=== PATIENT | female | born 1950 | race Caucasian/White ===

== ENCOUNTER → 2017-03-21 | Outpatient (CLI) | payer OTHER, BC ==
[~2017-03-21] MED LIST: ALBU1NEB10 INH; ALBUAER19 INH; ASTN NAE; CARI350T PO; DICL1GEL12 TOP; ESOM40GR PO; FURO20TA PO; IBUP-103 PO; LORA10TA5 PO; MCRK20 PO; MONT1TAB3 PO; MULTTAB58 PO; Motrin PO; SALI0.6510 NAE; SUCR5SUS PO; SYMIN160 INH; VENASTAT PO; [UNRECOGNIZED DRUG - CODE] EX
[2017-03-21 14:44] LABS: URINE APPEARANCE CLEAR (CLEAR); URINE BILIRUBIN NEG (NEG); URINE COLOR YELLOW; URINE NITRITE NEG (NEG); URINE SPECIFIC GRAVITY 1.006 (1.000-1.030); UROBILINOGEN NEG (NEG)
[2017-03-21 14:48] LABS: MANUAL MICROSCOPIC REQUIRED? NO; REVIEW REQ? NO
== END | disposition home or self-care (01) ==
LOC: C.LABSPEC 14:01
PROVIDERS: ATTEND Obstetrics & Gynecology
DX: N76.0 Acute vaginitis (principal); R30.0 Dysuria

== ENCOUNTER → 2017-03-21 | Outpatient (CLI) | payer BC, OTHER | END | disposition home or self-care (01) | LOC: C.PAPS 13:56 | PROVIDERS: ATTEND Obstetrics & Gynecology | DX: Z12.4 Encounter for screening for malignant neoplasm of cervix (principal) ==

== ENCOUNTER → 2017-09-19 | Outpatient (CLI) | payer OTHER, BC ==
--- NOTE | 2017-09-19 13:49 | DIAGNOSTIC IMAGING REPORT ---
CHEST 2 VIEWS ROUTINE CLINICAL HISTORY: R91.1 Pulmonary nodule lung nodule COMPARISON STUDY: 07/19/2014. CT chest 09/17/2016 FINDINGS: Chronic bibasilar platelike atelectasis. No focal infiltrate. No significant nodular pathology by plain film criteria. IMPRESSION: Bibasilar platelike atelectasis. No acute process. The above report was generated using voice recognition software. It may contain grammatical, syntax or spelling errors. Electronically signed by: Pelon Watt M.D. 09/19/2017 1:48 PM Dictated Date/Time: 09/19/2017 1:46 PM
== END | disposition home or self-care (01) ==
LOC: C.RAD 12:31
PROVIDERS: ATTEND Physician Assistant
DX: J98.11 Atelectasis (principal); R91.1 Solitary pulmonary nodule

== ENCOUNTER → 2017-10-08 | Outpatient (CLI) | payer OTHER, BC ==
[~2017-10-08] MED LIST changes: +OPTIRAY 320 IV PRN
--- NOTE | 2017-10-08 10:16 | DIAGNOSTIC IMAGING REPORT ---
CHEST CT WITH CONTRAST CT DOSE: 642.26 mGycm HISTORY: Acute cough with pulmonary nodule R05 [id number] Pulmonary nodule TECHNIQUE: Multiaxial CT images of the chest were performed following the intravenous administration of contrast. A dose lowering technique was utilized adhering to the principles of ALARA. COMPARISON: Chest CT 09/17/2016, 09/26/2015 and 08/23/2014. FINDINGS: Thyroid is homogeneous. No pathologic adenopathy about the chest identified. Heart is mildly enlarged without pericardial effusion. Bovine aortic arch is noted. Image great vessels are patent. No aortic dissection or aneurysm identified. The opacified pulmonary arterial tree is unremarkable. There is no pneumothorax, pleural effusion or focal airspace consolidation. Linear subsegmental bibasilar opacities are again seen suggesting areas of atelectasis and/or pleural-parenchymal scarring. There is a 5 x 5 mm solid noncalcified pulmonary nodule of the right lower lobe seen on image 157 series 4 which appears stable dating back to 08/23/[address] suggesting benign etiology. Calcified granuloma of the left lung apex noted. There are several noncalcified nodules throughout the right lung which appear unchanged dating back to 08/23/2014, largest of which is seen within the right lower lobe measuring 7 mm on image 142 series 4. No new or suspicious pulmonary nodules identified. Central airways are patent. Upper abdominal structures demonstrate no acute abnormality. Soft tissues are unremarkable. Bones appear intact. The level endplate spurring of the spine. IMPRESSION: 1. No acute intrathoracic abnormality identified. No lobar airspace consolidation to suggest pneumonia. 2. Linear subsegmental opacities of the lung bases and right upper lobe are again seen suggesting areas of atelectasis and/or pleural-parenchymal scarring. 3. Multiple solid pulmonary nodules are again seen as above which appear stable dating back to 08/23/[address] suggesting benign etiology. Electronically signed by: Danis Lucia M.D. 10/08/2017 10:14 AM Dictated Date/Time: 10/08/2017 10:06 AM
== END | disposition home or self-care (01) ==
LOC: C.CTS 09:37
PROVIDERS: ATTEND Physician Assistant
DX: J98.11 Atelectasis (principal); R05 Cough; R91.1 Solitary pulmonary nodule

== ENCOUNTER → 2017-11-07 | Outpatient (CLI) | payer OTHER, BC ==
[~2017-11-07] MED LIST changes: -LORA10TA5 PO; +LORA10TA6 PO; -OPTIRAY 320 IV PRN
--- NOTE | 2017-11-08 12:50 | MAMMOGRAPHY REPORT ---
BILATERAL DIGITAL SCREENING MAMMOGRAM TOMOSYNTHESIS WITH CAD: 11/07/2017 CLINICAL HISTORY: Routine screening. Patient has no complaints. TECHNIQUE: Breast tomosynthesis in addition to standard 2D mammography was performed. Current study was also evaluated with a Computer Aided Detection (CAD) system. COMPARISON: Comparison is made to exams dated: 10/28/2015 mammogram, 11/06/2016 mammogram, 4 mammogram, 10/07/2013 mammogram, 10/01/2012 mammogram, and 09/21/2011 mammogram - [facility]. BREAST COMPOSITION: There are scattered areas of fibroglandular density in both breasts. FINDINGS: No suspicious masses, calcifications, or areas of architectural distortion are noted in ei ther breast. There has been no significant interval change compared to prior exams. Scattered bilater al benign-appearing calcifications are not significantly changed. IMPRESSION: ACR BI-RADS CATEGORY 2: BENIGN There is no mammographic evidence of malignancy. A 1 year screening mammogram is recommended. The pa tient will receive written notification of the results. Approximately 10% of breast cancers are not detected with mammography. A negative mammographic report should not delay biopsy if a clinically suggestive mass is present. Tara Pinto M.D. /:11/07/2017 16:07:47 [employer]: Angie MOORE)(M), [facility] letter sent: Normal 1/2 BI-RADS Code: ACR BI-RADS Category 2: Benign
== END | disposition home or self-care (01) ==
LOC: C.MAMM 15:43
PROVIDERS: ATTEND Family Medicine
DX: Z12.31 Encounter for screening mammogram for malignant neoplasm of breast (principal)

== ENCOUNTER → 2018-03-26 | Outpatient (CLI) | payer OTHER, BC | END | disposition home or self-care (01) | LOC: C.PAPS 11:25 | PROVIDERS: ATTEND Obstetrics & Gynecology | DX: Z12.4 Encounter for screening for malignant neoplasm of cervix (principal) ==